=== PATIENT | female | born 1970 | race Caucasian/White ===

== ENCOUNTER 2016-05-26 17:10 | Emergency (ER) | payer SELFPAY ==
--- NOTE | ~2016-05-26 | ER ---
PATIENT'S NAME: JANEEN TYLER [facility] AGE: 46 Y [address] ROOM: [place] [address] LOCATION: [facility] ADMIT DATE: 05/26/2016 ER/Outpatient Report DISCHARGE DATE: 05/26/2016 FAMILY PHYSICIAN: PHYSICIAN, NO ATTENDING PHYSICIAN: Kacey Lorenzo Time of Evaluation: 1800 hours. HISTORY OF PRESENT ILLNESS: The patient is a 46-year-old female, who was seen recently at the [facility] with Dr. Fabian Bautista. The patient at that time presented with a left lumbar pain, radiating down her left leg. She also had some tenderness in her left lower quadrant. The patient was notified today by Dr. Bautista because of her lab values to come to the emergency room. The patient continues to have her lumbar pain, which usually is made worse by movement. The pain does radiate down the back of her leg to approximately her knee. Pain is not associated with any numbness or weakness or loss of bladder or bowel tone. She denies any fevers or chills. ALLERGIES: NONE. HOME MEDICATIONS: Reviewed. MEDICAL HISTORY: Includes fac-[id number]-[id number] diabetes, asthma, hypertension, history of kidney stones. SURGERIES: Include appendectomy, 2 C-sections, tubal. SOCIAL HISTORY: Nonsmoker. Denies alcohol use. REVIEW OF SYSTEMS: GENERAL: No recent fever or chills. HEENT: No complaints of a headache or sore throat. RESPIRATORY: Denies any shortness of breath or cough. GASTROINTESTINAL: Includes no constipation or diarrhea. She has had left lower quadrant pain. GENITOURINARY: No vaginal discharge. She is sexually active with one partner. Has had yeast infections in the past. MUSCULOSKELETAL: Includes left lumbar pain, which radiates down to back of her leg, worse with movement. PATIENT'S NAME: JANEEN TYLER [facility] AGE: 46 Y [address] ROOM: [place], [place] [address] LOCATION: [facility] ADMIT DATE: 05/26/2016 ER/Outpatient Report DISCHARGE DATE: 05/26/2016 FAMILY PHYSICIAN: PHYSICIAN, JOSSELINE ATTENDING PHYSICIAN: Kacey Lorenzo NEUROPSYCH: No weakness or numbness to her extremities. PHYSICAL EXAMINATION: VITAL SIGNS: Temp is 98.6, respiratory rate 16, pulse 104, blood pressure 133/87, O2 saturations 97%. GENERAL APPEARANCE: Somewhat overweight but alert, cooperative. HEENT: Eyes: PERRLA. No icterus. Nose: Septum midline. Mouth: Tongue midline. Buccal membranes moist. LUNGS: Clear at the base. ABDOMEN: She has fairly localized tenderness in the left lower quadrant. No mass is palpated. Some tenderness in the left lower flank area. NEUROLOGIC: Her reflexes appear equal and symmetrical throughout. She is able to walk on her heels and toes. Sciatic stretch is somewhat positive. LABORATORY DATA AND X-RAYS: CBC: Her white count was still elevated at about 15,000. Her CMS, glucose elevated 238, BUN also at 31. Total protein is high at 8.6. Urine was clear. No blood. No evidence of any infection. Her GFR was greater than 60. Hemoglobin was 13.7. Due to her left lower quadrant pain, we did go ahead and do a CT of her abdomen and pelvis, which Dr. Osorio interpreted as normal. There was no evidence of any diverticulitis. ASSESSMENT: 1. Sciatica, left side. 2. Left lower quadrant pain, unknown etiology. PLAN: Since she is a diabetic and she has been on the ibuprofen for about 5 days, we did give her a script for [place] for pain to take 1 or 2 every 4 to 6 hours. Avoid any heavy lifting. Recommended follow up in 5 days if not improving. Handout given on sciatica. Also advised sooner followup if the left lower quadrant pain gets worse or any concerns. Lab work is still pending, chlamydia and gonorrhea on her urine. [address] [facility]/ciaran /[id number] d: 05/27/16 0139 t: 06/07/16 1204, OUTPATIENT REPORT
[2016-05-26 17:56] LABS: BILIRUBIN URINE NEGATIVE (NEGATIVE); BLOOD URINE NEGATIVE /UL (NEGATIVE); COLOR URINE YELLOW (YELLOW); GLUCOSE URINE 100 mg/dL (NEGATIVE); KETONE URINE NEGATIVE (NEGATIVE); LEUKOCYTES URINE NEGATIVE /UL (NEGATIVE); NITRITE URINE NEGATIVE (NEGATIVE); PROTEIN URINE NEGATIVE (NEGATIVE); TURBIDITY URINE CLEAR (CLEAR); UROBILINOGEN URINE NORMAL (NORMAL)
[2016-05-26 18:09] LABS: BASOPHIL # 0.1 K/uL (0.0-0.2); EOSINOPHIL # 0.2 K/uL (0.0-0.5); EOSINOPHIL % 1.8 %; HEMOGLOBIN 13.7 g/dL (10.0-15.0); IMMATURE GRANULOCYTE # 0.1 K/uL (0.0-0.3); IMMATURE GRANULOCYTE % 0.7 %; LYMPHOCYTE # 4.6 K/uL (0.8-4.0); LYMPHOCYTE % 34.1 %; MCH 29.3 pg (27.0-34.0); MCHC 34.3 gm/dL (32.0-36.5); MCV 85.5 fl (83.0-98.0); MONOCYTE # 0.8 K/uL (0.0-1.0); MONOCYTE % 5.7 %; MPV 9.5 fl (9.4-12.4); NEUTROPHIL # (ANC) 7.7 K/uL (1.8-7.8); NEUTROPHIL % 56.7 %; NRBC % 0 /100WBC (0-0.00); RBC 4.68 M/uL (3.50-5.50); RDW-CV 13.1 % (11.9-14.6); WBC 13.6 K/uL (4.0-11.0)
[2016-05-26 18:24] LABS: ALBUMIN 3.8 gm/dL (3.5-5.0); ALK PHOS 56 IU/L (33-138); ALT 34 IU/L (12-78); ANION GAP 20.1 (10.0-19.0); AST 23 IU/L (10-40); BLOOD UREA NITROGEN 31 mg/dL (6-24); CALCIUM 9.6 mg/dL (8.5-10.5); CHLORIDE 98 mMol/L (96-110); CO2 21 mMol/L (22-32); CREATININE 0.9 mg/dL (0.5-1.1); POTASSIUM 4.1 mMol/L (3.7-5.1); SODIUM 135 mMol/L (135-145); TOTAL BILIRUBIN 0.2 mg/dL (0.0-1.5); TOTAL PROTEIN 8.6 g/dL (6.0-8.4)
[2016-05-26 18:28] LABS: ESTIMATED GFR (MDRD EQUATION) > 60
[2016-05-26 18:41] LABS: PLATELET COUNT 455 K/uL (150-450)
== END 2016-05-26 20:04 | disposition disaster alternative care site (69) ==
LOC: GMED 17:10
PROVIDERS: Physician Assistant Medical
DX: M54.42 Lumbago with sciatica, left side (principal); R10.32 Left lower quadrant pain; E11.9 Type 2 diabetes mellitus without complications; J45.909 Unspecified asthma, uncomplicated; I10 Essential (primary) hypertension; Z90.89 Acquired absence of other organs; Z98.890 Other specified postprocedural states
CPT/HCPCS: J2270; J2405

== ENCOUNTER 2016-07-27 12:10 | Emergency (ER) | payer SELFPAY ==
--- NOTE | ~2016-07-27 | ER ---
PATIENT'S NAME: JANEEN TYLER [facility] AGE: 46 Y [address] ROOM: [place] [address] LOCATION: ED ADMIT DATE: 07/27/2016 ER/Outpatient Report DISCHARGE DATE: 07/27/2016 FAMILY PHYSICIAN: PHYSICIAN, NO ATTENDING PHYSICIAN: Aden Mayberry Time of Arrival: 1218 hours. Time of Exam: 1218 hours. CHIEF COMPLAINT: Difficulty breathing. HISTORY OF PRESENT ILLNESS: The patient states in the past 24 hours, she has had productive cough of yellow phlegm; sore throat; dull chest pain, worse with coughing; feels like she just cannot breathe; hyperventilating. States she has had generalized fatigue, sore throat. Has not been nauseated, has not vomited. ALLERGIES: NO KNOWN ALLERGIES. CURRENT MEDICATIONS: On her chart and were reviewed by me. PAST MEDICAL HISTORY: [id number] diabetes, hypertension, asthma, kidney stones, obesity. PAST SURGERIES: , hernia repair, appendectomy, and tubal ligation. SOCIAL HISTORY: She states she quit smoking 9 years ago. Denies use of drugs or alcohol. REVIEW OF SYSTEMS: All negative other than those mentioned in the HPI. PHYSICAL EXAMINATION: VITAL SIGNS: She weighs 101.2 kg; blood pressure is 114/72; pulse of 116; respirations 34; temperature of 100.6, tympanic; O2 saturation was 94% on room air. GENERAL: She is awake, alert, and oriented x4. SKIN: [place], warm, and dry. RESPIRATIONS: Even and nonlabored. LUNGS: Lung sounds were clear throughout. HEART: Tachycardic, but regular. No peripheral edema noted. PATIENT'S NAME: JANEEN TYLER [facility] AGE: 46 Y [address] ROOM: [place] [address] LOCATION: [facility] ADMIT DATE: 07/27/2016 ER/Outpatient Report DISCHARGE DATE: 07/27/2016 FAMILY PHYSICIAN: PHYSICIAN, NO ATTENDING PHYSICIAN: Aden Mayberry ABDOMEN: Soft, nondistended. Bowel sounds are present. EMERGENCY DEPARTMENT COURSE: She walked in with a steady even gait. She was hyperventilating. She was encouraged to take deep breaths, hold it, and try and slow down her breathing. Saline lock was initiated. LABORATORY DATA: Lab work was drawn. EKG was completed. EKG showed a sinus tach. CBC showed white count of 12.1, hemoglobin was 13.3, hematocrit of 39.7. Chem panel: Sodium is 135, potassium is 4.1, chloride 100. Her anion gap was 21.1. Glucose was 303, AST was 48, ALT was 42. Cardiac enzymes were negative. ProBNP was less than 30. D-dimer was 0.36. Lactate was 6.5. Fluids of normal saline were started at a wide-open rate. Procalcitonin was normal. Acetone was negative. ABGs were completed on room air. Her pH was 7.5, pCO2 was 28 with a bicarb of 21.8. Clean-catch UA was obtained. It showed 1000 of glucose and 15 of ketones. EMERGENCY DEPARTMENT COURSE: The patient was reviewed with Dr. Mayberry. We did do a DuoNeb treatment. Initially, the patient did not think it helped, but then she thought may be it did make it little bit easier to breathe. Per Dr. Mayberry's recommendations, we did do Xopenex respiratory treatments x3. Chest x-rays showed no acute abnormalities. The patient was given Solu-Medrol 125 mg IV. IMPRESSION: Asthma. PLAN: Home, rest, fluids. Dr. Mayberry wrote a prescription for prednisone. She is to make sure she takes plenty of fluids. She is to return to the ER if her symptoms worsen. Follow up with her primary provider in the next 2-3 days. She verbalized understanding. BRIANNE MARTINEZ APRN FOR [facility]JAN/ciaran /[id number] I have personally seen and evaluated this patient. I agree with assessment and plan as documented above. Aden Mayberry MD d: 07/28/16 0212 t: 08/05/16 193, OUTPATIENT REPORT
[2016-07-27 12:54] LABS: BASOPHIL # 0.1 K/uL (0.0-0.2); BASOPHIL % 0.8 %; EOSINOPHIL # 0.7 K/uL (0.0-0.5); HEMATOCRIT 39.7 % (33.0-46.0); HEMOGLOBIN 13.3 g/dL (10.0-15.0); IMMATURE GRANULOCYTE # 0.1 K/uL (0.0-0.3); IMMATURE GRANULOCYTE % 0.7 %; LYMPHOCYTE # 2.4 K/uL (0.8-4.0); LYMPHOCYTE % 20.1 %; MCH 29.6 pg (27.0-34.0); MCHC 33.5 gm/dL (32.0-36.5); MCV 88.2 fl (83.0-98.0); MONOCYTE # 0.7 K/uL (0.0-1.0); MONOCYTE % 5.4 %; MPV 9.1 fl (9.4-12.4); NEUTROPHIL # (ANC) 8.1 K/uL (1.8-7.8); NRBC % 0 /100WBC (0-0.00); PLATELET COUNT 455 K/uL (150-450); RDW-CV 12.7 % (11.9-14.6); WBC 12.1 K/uL (4.0-11.0)
[2016-07-27 13:15] LABS: ALBUMIN 3.4 gm/dL (3.5-5.0); ALK PHOS 59 IU/L (33-138); ALT 42 IU/L (12-78); BLOOD UREA NITROGEN 15 mg/dL (6-24); CALCIUM 8.9 mg/dL (8.5-10.5); CHLORIDE 100 mMol/L (96-110); CO2 18 mMol/L (22-32); CPK 102 IU/L (21-215); CREATININE 0.9 mg/dL (0.5-1.1); ESTIMATED GFR (MDRD EQUATION) > 60; SODIUM 135 mMol/L (135-145); TOTAL BILIRUBIN 0.2 mg/dL (0.0-1.5); TOTAL PROTEIN 8.1 g/dL (6.0-8.4)
[2016-07-27 13:16] LABS: ANION GAP 21.1 (10.0-19.0); AST 48 IU/L (10-40); POTASSIUM 4.1 mMol/L (3.7-5.1)
[2016-07-27 14:44] LABS: BILIRUBIN URINE NEGATIVE (NEGATIVE); BLOOD URINE NEGATIVE /UL (NEGATIVE); COLOR URINE YELLOW (YELLOW); GLUCOSE URINE 1000 mg/dL (NEGATIVE); KETONE URINE 15 mg/dL (NEGATIVE); LEUKOCYTES URINE NEGATIVE /UL (NEGATIVE); NITRITE URINE NEGATIVE (NEGATIVE); PROTEIN URINE 30 mg/dL (NEGATIVE); SPEC GRAVITY URINE 1.025 (1.003-1.035); TURBIDITY URINE CLEAR (CLEAR); UROBILINOGEN URINE NORMAL (NORMAL)
[2016-07-27 14:52] LABS: BACTERIA URINE FEW (NEGATIVE); MUCUS URINE 1+ (NEGATIVE); RBC URINE NEGATIVE #/HPF (NEGATIVE); WBC URINE 0-2 #/HPF (NEGATIVE)
[2016-07-27 15:39] LABS: BICARBONATE 21.8 mmol/L (18.0-23.0); PCO2 28 mmHg (35-45); PO2 79 mmHg (80-90)
== END 2016-07-27 16:18 | disposition disaster alternative care site (69) ==
LOC: GMED 12:10
PROVIDERS: Nurse Practitioner Family
DX: J45.909 Unspecified asthma, uncomplicated (principal); E11.9 Type 2 diabetes mellitus without complications; I10 Essential (primary) hypertension; E66.9 Obesity, unspecified; Z87.891 Personal history of nicotine dependence; Z98.51 Tubal ligation status; Z98.890 Other specified postprocedural states; Z87.442 Personal history of urinary calculi; Z79.899 Other long term (current) drug therapy; Z79.84 Long term (current) use of oral hypoglycemic drugs
CPT/HCPCS: J2930; J7030; J7612; Q9967